=== PATIENT | female | born 1940 | race Caucasian/White ===

== ENCOUNTER 2020-09-01 08:52 | Emergency (ER) | payer MEDICARE ==
[2020-09-01 08:59] VITALS: BP 146/80; PULSE 74; RESP 18; TEMP 97.7
[2020-09-01] MEDS ORDERED: DIPH,PERTUS(ACELL)TETVAC-LF 0.5 ML VIAL IM ONE (09:13)
--- NOTE | 2020-09-01 09:34 | ED ---
Fall HPI <MarroquinLucak - Last Filed: 09/01/20 11:01> - General Source: patient, RN notes reviewed Mode of arrival: wheelchair - History of Present Illness MD Complaint: fall <Moises Chance - Last Filed: 09/01/20 11:13> - General Chief Complaint: Fall Stated Complaint: fall Time Seen by Provider: 09/01/20 09:00 - History of Present Illness Initial Comments: This is an 80-year-old female who states she was out walking this morning when she tripped on concrete and fell on her left side. She complains some left facial pain to the inferior orbit area where she sustained abrasion no neck pain no chest abdominal pain no back pain she did fall on outstretched hand and complains of left hand pain especially over the fifth metacarpal phalangeal joint region. No sensory loss. Decreased range of motion. She has minimal pain at this time she says. She also sustained an abrasion to left knee no complaints of any other injury she is able ably without any difficulty afterwards. She is not sure her last tetanus shot was. She is on aspirin but no other blood thinning agents. (Moises Chance) - Related Data Previous Rx's Medication Instructions Recorded Ibuprofen [Motrin] 600 mg PO Q6HR PRN #20 tab 09/01/20 Allergies Allergy/AdvReac Type Severity Reaction Status Date / Time No Known Allergies Allergy Verified 09/01/20 08:59 Review of Systems ROS Other: All systems not noted in ROS Statement are negative. <rAvin Marroquin - Last Filed: 09/01/20 11:01> ROS Other: All systems not noted in ROS Statement are negative. <RobsonMoises - Last Filed: 09/01/20 11:13> ROS Statement: Those systems with pertinent positive or pertinent negative responses have been documented in the HPI. Past Medical History Past Medical History: Mitral Valve Prolapse (MVP) History of Any Multi-Drug Resistant Organisms: None Reported Past Surgical History: Tonsillectomy Additional Past Surgical History / Comment(s): bunion, ankle fracture Past Psychological History: No Psychological Hx Reported Smoking Status: Never smoker Past Alcohol Use History: Occasional Past Drug Use History: None Reported <Moises Chance - Last Filed: 09/01/20 11:13> General Exam Limitations: no limitations General appearance: alert, in no apparent distress Head exam: Present: normocephalic, other (Abrasion seen over the left inferior lateral orbit no step-off or crepitation mild amount of edema and ecchymosis noted. Additionally.) Eye exam: Present: normal appearance, PERRL, EOMI. Absent: scleral icterus, conjunctival injection, periorbital swelling ENT exam: Present: normal exam, mucous membranes moist Neck exam: Present: normal inspection, full ROM, other (No stridor JVD or bruits no midline tenderness.). Absent: tenderness, meningismus, lymphadenopathy Respiratory exam: Present: normal lung sounds bilaterally. Absent: respiratory distress, wheezes, rales, rhonchi, stridor Cardiovascular Exam: Present: regular rate, normal rhythm, normal heart sounds. Absent: systolic murmur, diastolic murmur, rubs, gallop, clicks Extremities exam: Present: tenderness, normal capillary refill, other (Tenderness palpation and some edema seen over the left hand at the fifth metacarpophalangeal joint region on a small step-off no crepitation. Refill less than 2 seconds.). Absent: full ROM Back exam: Present: normal inspection, full ROM Neurological exam: Present: alert, oriented X3, CN II-XII intact Psychiatric exam: Present: normal affect, normal mood Skin exam: Present: warm, dry. Absent: intact <Moises Chance - Last Filed: 09/01/20 11:13> - General Exam Comments Initial Comments: this is a well-developed well-nourished awake alert oriented 3 female with a [place] Coma Scale of 15 (Moises Chance) Course <Moises Chance - Last Filed: 09/01/20 11:13> Vital Signs 09/01/20 08:53 Temperature 97.7 F Pulse Rate 74 Respiratory 18 Rate Blood Pressure 146/80 O2 Sat by Pulse 100 Oximetry - Reevaluation(s) Reevaluation #1: 09/01/20 09:35 Patient currently does not want any pain medication (Moises Chance) Procedures - Orthopedic Splinting/Casting Injury #1 Side: left Upper Extremity Injury Location: hand, finger Upper Extremity Immobilizer: ulnar gutter, Daniel wrap, synthetic pre-padded splint <Arvin Marroquin - Last Filed: 09/01/20 11:01> Medical Decision Making - Radiology Data Radiology results: report reviewed (Imaging reviewed. Orbits appear to be intact. Fracture of the base of the proximal phalanx of the fifth finger with slight displacement and impaction.), image reviewed <Moises Chance - Last Filed: 09/01/20 11:13> - Medical Decision Making I did discuss the findings with the patient she'll be placed in a splint discharged with instructions for wound care and orthopedic follow-up. She'll be referred to orthopedics in [place] but states she is going back to [place] in 3 days and will likely follow-up there. (Moises Chance) Disposition <Arvin Marroquin - Last Filed: 09/01/20 11:01> Is patient prescribed a controlled substance at d/c from ED?: No <Moises Chance - Last Filed: 09/01/20 11:13> Clinical Impression: Fall, Facial abrasion, Abrasion of left knee, Finger fracture, left Disposition: HOME SELF-CARE Condition: Good Instructions (If sedation given, give patient instructions): Fall Prevention for Older Adults (ED), Abrasion (ED), Finger Fracture (ED) Prescriptions: Ibuprofen [Motrin] 600 mg PO Q6HR PRN #20 tab PRN Reason: Pain Referrals: None,Stated [Primary Care Provider] - 1-2 days Ralph Parrish DO [Doctor of Osteopathic Medicine] - 1-2 days
--- NOTE | 2020-09-01 10:19 | XR ---
EXAMINATION TYPE: XR hand complete LT DATE OF EXAM: 09/01/2020 CLINICAL HISTORY: Fall with left hand pain TECHNIQUE: Frontal, lateral and oblique images of the left hand are obtained. COMPARISON: None. FINDINGS: There is an acute fracture of the base of the proximal phalanx of the fifth finger with slight displa cement and impaction. Degenerative changes of the first carpometacarpal and triscaphe articulations are seen. The bones jose luis ear diffusely, qualitatively osteopenic. IMPRESSION: Acute fracture of the base of the proximal phalanx of the fifth finger with slight displacement and i mpaction.
--- NOTE | 2020-09-01 10:20 | XR ---
EXAMINATION TYPE: XR orbit complete bilateral DATE OF EXAM: 09/01/2020 COMPARISON: NONE HISTORY: Pain, abrasion, swelling left eye TECHNIQUE: 3 views orbits FINDINGS: There is no definite plain radiograph evidence for orbital fracture, however, CT is more sensitive. Extensive dental hardware is noted. IMPRESSION: There is no definite plain radiograph evidence for orbital fracture, however, CT is more sensitive.
== END 2020-09-01 11:44 | disposition home or self-care (01) ==
LOC: EC 08:52
DX: S62.617A Displaced fracture of proximal phalanx of left little finger, initial encounter for closed fracture (principal); S00.81XA Abrasion of other part of head, initial encounter; S80.212A Abrasion, left knee, initial encounter; Z79.82 Long term (current) use of aspirin; Z23 Encounter for immunization; W01.0XXA Fall on same level from slipping, tripping and stumbling without subsequent striking against object, initial encounter; Y93.01 Activity, walking, marching and hiking
CPT/HCPCS: 29125; 70200; 90471; 90715; 99284